=== PATIENT | female | born 1930 | race Caucasian/White ===

== ENCOUNTER 2016-04-08 15:29 | Inpatient (IN) | payer OTHER, MEDICAID ==
[~2016-04-08] VITALS: Ht 157.5 cm; Wt 44.0 kg
[2016-04-08 15:30] VITALS: BP 164/75; PULSE 60; RESP 16; TEMP 97.5; O2SAT 99
[2016-04-08] MEDS ORDERED: ASPIRIN 81 MG TAB.CHEW PO ONE (15:45)
[2016-04-08 17:27] LABS: BASOPHILS # (AUTO) 0.1 K/uL (0.0-0.2); BASOPHILS % (AUTO) 0.7 % (0.0-2.0); EOSINOPHILS # (AUTO) 0.2 K/uL (0.0-0.4); EOSINOPHILS % (AUTO) 2.2 % (0.0-4.0); HEMATOCRIT 31.3 % (36-48); HEMOGLOBIN 10.8 g/dL (12.0-16.0); LYMPHOCYTES # (AUTO) 1.7 K/uL (1.0-5.5); MEAN CORPUSCULAR HEMOGLOBIN 31 pg (27-31); MEAN CORPUSCULAR HGB CONC 35 % (32-36); MEAN CORPUSCULAR VOLUME 91 fL (79.0-98.0); MONOCYTES # (AUTO) 0.5 K/uL (0.0-1.0); MONOCYTES % (AUTO) 6.7 % (1.7-9.3); NEUTROPHILS # (AUTO) 5.2 K/uL (1.8-7.7); NEUTROPHILS % (AUTO) 68.4 % (40.0-70.0); PLATELET COUNT (AUTO) 159 K/uL (130-430); RED BLOOD CELL COUNT(AUTO) 3.45 MIL/uL (4.2-6.2); RED CELL DISTRIBUTION WIDTH 12.1 % (9.0-15.0); WHITE BLOOD COUNT (AUTO) 7.7 K/uL (4.8-10.8)
[2016-04-08 17:32] LABS: ANION GAP 8 (5-15); CALCIUM 9.2 mg/dL (8.4-11.0); CHLORIDE 105 mmol/L (98-107); CREATININE 1.15 mg/dL (0.55-1.30); GLUCOSE 130 mg/dL (70-99); POTASSIUM 4.9 mmol/L (3.5-5.1); SODIUM SERUM 138 mmol/L (136-145); UREA NITROGEN, BLOOD 39 mg/dL (8-21)
[2016-04-08 17:36] LABS: ALANINE AMINOTRANSFERASE 33 U/L (12-78); ALBUMIN 3.9 g/dL (3.4-4.8); ASPARTATE AMINOTRANSFERASE 31 U/L (10-37); LIPASE 234 U/L (73-393); TOTAL BILIRUBIN 0.3 mg/dL (0.0-1.0); TOTAL PROTEIN, SERUM 7.9 g/dL (6.4-8.3)
[2016-04-08 17:52] LABS: INR 0.9 (0.8-1.2); PROTHROMBIN TIME 10.2 SECS (9.5-12.5)
[2016-04-08 19:58] LABS: BILIRUBIN,URINE NEGATIVE (NEGATIVE); CLARITY/URINE HAZY (CLEAR); COLOR,URINE YELLOW (YELLOW); GLUCOSE,URINE TRACE (NEGATIVE); KETONES,URINE NEGATIVE (NEGATIVE); LEUKOCYTE ESTERASE ,URINE TRACE (NEGATIVE); NITRITE, URINE NEGATIVE (NEGATIVE); PROTEIN URINE TRACE (NEGATIVE); UROBILINOGEN,URINE 0.2 (0.2-1.0)
[2016-04-08] MEDS ORDERED: ASPIRIN 325 MG TABLET (ECOTRIN) PO ONE (20:00)
[2016-04-08 20:05] LABS: BLOOD, URINE TRACE (NEGATIVE)
[2016-04-08 20:07] VITALS: BP 180/78; PULSE 64; RESP 20; TEMP 98.4; O2SAT 100
[2016-04-08 20:12] LABS: BACTERIA,URINE FEW /HPF (None Seen); MUCUS,URINE None Seen /LPF (None Seen); RBC,URINE 0-3 /HPF (0-3)
[2016-04-08] MEDS ORDERED: PROP10DR2 EACH EYE (20:54)
[2016-04-08] MEDS ORDERED: BUSP5TAB3 PO (20:54)
[2016-04-08] MEDS ORDERED: DOCU-144 PO (20:54)
[2016-04-08] MEDS ORDERED: METF-303 PO (20:54)
[2016-04-08] MEDS ORDERED: FERR159T2 PO (20:54)
[2016-04-08] MEDS ORDERED: AMIO100T4 PO (20:54)
[2016-04-08] MEDS ORDERED: PREDEYE1% OP (20:54)
[2016-04-08] MEDS ORDERED: BENA20TA2 PO (20:54)
[2016-04-08] MEDS ORDERED: IBUP-1517 PO (20:54)
[2016-04-09] VITALS: BP 132/60; PULSE 55; RESP 18; TEMP 97.1; O2SAT 100
[2016-04-09 04:44] VITALS: BP 129/62; PULSE 57; RESP 17; TEMP 97.7; O2SAT 98
[2016-04-09 08:00] VITALS: BP 144/68; PULSE 50; RESP 18; TEMP 98; O2SAT 100
[2016-04-09] MEDS: ASPIRIN 325 MG TABLET (ECOTRIN) PO SCH (09:16)
[2016-04-09 11:27] VITALS: BP 112/58; PULSE 50; RESP 18; TEMP 97.6; O2SAT 98
[2016-04-09 12:24] VITALS: BP 135/73; PULSE 107; RESP 18; TEMP 98.1; O2SAT 96
[2016-04-09 19:30] VITALS: BP 117/51; PULSE 53; RESP 18; TEMP 97.8; O2SAT 98
[2016-04-09] MEDS ORDERED: DEXTROSE 50% JECT 50 ML DISP.SYRIN IVP PRN (21:15)
[2016-04-10 00:57] VITALS: BP 145/72; PULSE 58; RESP 18; TEMP 96.6; O2SAT 99
[2016-04-10 04:06] VITALS: BP 126/59; PULSE 61; RESP 18; TEMP 97; O2SAT 93
[2016-04-10] MEDS: INSULIN REGULAR, HUMAN 100 UNITS/ML, 10 ML VIAL (novoLIN R) SUBCUT PRN ×3 (05:25→23:57)
[2016-04-10 07:47] VITALS: BP 150/69; PULSE 60; RESP 18; TEMP 98.2; O2SAT 95
[2016-04-10 08:33] LABS: ANION GAP 6 (5-15); CALCIUM 9.1 mg/dL (8.4-11.0); CHLORIDE 102 mmol/L (98-107); CREATININE 1.25 mg/dL (0.55-1.30); GLUCOSE 54 mg/dL (70-99); POTASSIUM 3.8 mmol/L (3.5-5.1); SODIUM SERUM 139 mmol/L (136-145); UREA NITROGEN, BLOOD 33 mg/dL (8-21)
[2016-04-10 08:42] LABS: ALANINE AMINOTRANSFERASE 33 U/L (12-78); ASPARTATE AMINOTRANSFERASE 32 U/L (10-37); TOTAL BILIRUBIN 0.3 mg/dL (0.0-1.0); TOTAL PROTEIN, SERUM 8.2 g/dL (6.4-8.3)
[2016-04-10] MEDS: DOCUSATE SODIUM 100 MG CAPSULE PO SCH (08:45)
[2016-04-10] MEDS: metFORMIN HCL 500 MG TABLET PO SCH ×2 (08:45→20:47)
[2016-04-10] MEDS: ASPIRIN 325 MG TABLET (ECOTRIN) PO SCH (08:45)
[2016-04-10] MEDS: busPIRone HCL 5 MG TABLET PO SCH (08:45)
[2016-04-10] MEDS: AMIODARONE HCL 200 MG TABLET PO SCH (08:46)
[2016-04-10 09:16] LABS: CHOLESTEROL 169 mg/dL (<200); HDL CHOLESTEROL 61 mg/dL (>55); LDL CHOLESTEROL 94 mg/dL (<100); THYROID STIMULATING HORMONE 3.98 uIu/mL (0.34-4.82); TRIGLYCERIDES 78 mg/dL (30-150)
[2016-04-10 11:29] VITALS: BP 142/71; PULSE 77; RESP 16; TEMP 97.7; O2SAT 98
[2016-04-10 12:06] VITALS: Ht 157.5 cm; Wt 44.0 kg
[2016-04-10 15:40] VITALS: BP 135/63; PULSE 67; RESP 19; TEMP 98.4; O2SAT 93
[2016-04-10 19:30] VITALS: BP 133/57; PULSE 67; RESP 18; TEMP 97; O2SAT 100
[2016-04-10] MEDS ORDERED: BENAZEPRIL HCL 20 MG TABLET (LOTENSIN) PO SCH (21:00)
[2016-04-10] MEDS ORDERED: TEMAZEPAM 15 MG CAPSULE PO SCH (21:00)
[2016-04-11 00:14] VITALS: BP 96/47; PULSE 56; RESP 16; TEMP 97.6; O2SAT 92
[2016-04-11 04:25] VITALS: BP 106/50; PULSE 58; RESP 16; TEMP 98.6; O2SAT 99
[2016-04-11 08:18] VITALS: BP 132/55; PULSE 55; RESP 17; TEMP 96.2; O2SAT 99
[2016-04-11] MEDS: busPIRone HCL 5 MG TABLET PO SCH (08:20)
[2016-04-11] MEDS: ASPIRIN 325 MG TABLET (ECOTRIN) PO SCH (08:20)
[2016-04-11] MEDS: metFORMIN HCL 500 MG TABLET PO SCH (08:20)
[2016-04-11] MEDS: DOCUSATE SODIUM 100 MG CAPSULE PO SCH (08:20)
[2016-04-11] MEDS: AMIODARONE HCL 200 MG TABLET PO SCH (09:00)
[2016-04-11 12:00] VITALS: BP 90/45; PULSE 59; RESP 18; TEMP 97; O2SAT 100
[2016-04-11 14:25] VITALS: BP 90/45; PULSE 59; RESP 18; TEMP 97; O2SAT 100
== END 2016-04-11 16:00 | DRG 392 ==
LOC: SED 15:29 → STU 18:47
PROVIDERS: ADMIT Internal Medicine Hospice and Palliative Medicine; ATTEND Internal Medicine Hospice and Palliative Medicine
DX: K21.9 Gastro-esophageal reflux disease without esophagitis (principal); I47.1 Supraventricular tachycardia; E11.9 Type 2 diabetes mellitus without complications; I10 Essential (primary) hypertension; I48.0 Paroxysmal atrial fibrillation; F03.90 Unspecified dementia, unspecified severity, without behavioral disturbance, psychotic disturbance, mood disturbance, and anxiety; M19.90 Unspecified osteoarthritis, unspecified site; Z85.038 Personal history of other malignant neoplasm of large intestine; Z90.49 Acquired absence of other specified parts of digestive tract; Z88.0 Allergy status to penicillin; Z88.2 Allergy status to sulfonamides; Z79.01 Long term (current) use of anticoagulants; Z79.899 Other long term (current) drug therapy
CPT/HCPCS: 36415; 71010; 80053; 80061; 81000-TC; 82962; 83690-TC; 83880; 84443-TC; 84484; 85025; 85610-TC; 85730-TC; 87086; 93005; 93306; 97116-GP; 99285

== ENCOUNTER 2017-10-15 10:49 | Emergency (ER) | payer OTHER, MEDICAID ==
[~2017-10-15] VITALS: Ht 157.5 cm; Wt 45.4 kg
[~2017-10-15 10:49] MED LIST: AMIO100T4 PO; BENA20TA2 PO; BUSP5TAB3 PO; DOCU-144 PO; FERR159T2 PO; IBUP-1518 PO; METF500T6 PO; PREDEYE1% OP; PROP10DR2 EACH EYE
[2017-10-15 10:50] VITALS: BP_SYST 137
[2017-10-15] MEDS ORDERED: NACL 0.9% 1,000 ML IV ONE (11:00)
[2017-10-15 11:33] LABS: BASOPHILS # (AUTO) 0.1 K/uL (0.0-0.2); BASOPHILS % (AUTO) 0.8 % (0.0-2.0); EOSINOPHILS # (AUTO) 0.1 K/uL (0.0-0.4); EOSINOPHILS % (AUTO) 0.8 % (0.0-4.0); HEMATOCRIT 30.8 % (36-48); LYMPHOCYTES # (AUTO) 1.1 K/uL (1.0-5.5); LYMPHOCYTES % (AUTO) 16.2 % (20.5-51.5); MEAN CORPUSCULAR HEMOGLOBIN 31 pg (27-31); MEAN CORPUSCULAR HGB CONC 33 % (32-36); MEAN CORPUSCULAR VOLUME 94 fL (79.0-98.0); MONOCYTES # (AUTO) 0.5 K/uL (0.0-1.0); MONOCYTES % (AUTO) 7.3 % (1.7-9.3); NEUTROPHILS # (AUTO) 4.9 K/uL (1.8-7.7); NEUTROPHILS % (AUTO) 74.9 % (40.0-70.0); PLATELET COUNT (AUTO) 198 K/uL (130-430); RED BLOOD CELL COUNT(AUTO) 3.29 MIL/uL (4.2-6.2); RED CELL DISTRIBUTION WIDTH 11.9 % (9.0-15.0); WHITE BLOOD COUNT (AUTO) 6.7 K/uL (4.8-10.8)
[2017-10-15 11:45] LABS: ANION GAP 10 (5-15); CALCIUM 9.1 mg/dL (8.4-11.0); CHLORIDE 103 mmol/L (98-107); GLUCOSE 126 mg/dL (70-99); POTASSIUM 4.7 mmol/L (3.5-5.1); SODIUM SERUM 138 mmol/L (136-145); UREA NITROGEN, BLOOD 41 mg/dL (8-21)
[2017-10-15 11:49] LABS: ALANINE AMINOTRANSFERASE 21 U/L (12-78); ALBUMIN 3.9 g/dL (3.4-4.8); ASPARTATE AMINOTRANSFERASE 27 U/L (10-37); TOTAL BILIRUBIN 0.4 mg/dL (0.0-1.0)
[2017-10-15 12:46] LABS: BILIRUBIN,URINE NEGATIVE (NEGATIVE); BLOOD, URINE NEGATIVE (NEGATIVE); CLARITY/URINE CLEAR (CLEAR); COLOR,URINE YELLOW (YELLOW); GLUCOSE,URINE NEGATIVE (NEGATIVE); KETONES,URINE NEGATIVE (NEGATIVE); LEUKOCYTE ESTERASE ,URINE 1+ (NEGATIVE); NITRITE, URINE NEGATIVE (NEGATIVE); PROTEIN URINE NEGATIVE (NEGATIVE); UROBILINOGEN,URINE 0.2 (0.2-1.0)
[2017-10-15 13:13] LABS: BACTERIA,URINE FEW /HPF (None Seen); MUCUS,URINE None Seen /LPF (None Seen); RBC,URINE 0-3 /HPF (0-3); WBC,URINE 0-3 /HPF (0-3)
[2017-10-15] MEDS ORDERED: NITROFURANTOIN MONOHYD/M-CRYST 100 MG CAPSULE PO ONE (13:15)
[2017-10-15 16:53] VITALS: BP_SYST 142
== END 2017-10-15 16:20 | disposition home or self-care (01) ==
LOC: SED 10:49
DX: R51 Headache (principal); D64.9 Anemia, unspecified; N39.0 Urinary tract infection, site not specified; E11.9 Type 2 diabetes mellitus without complications; I10 Essential (primary) hypertension; Z88.1 Allergy status to other antibiotic agents; Z88.0 Allergy status to penicillin; Z88.2 Allergy status to sulfonamides; Z91.018 Allergy to other foods; Z79.899 Other long term (current) drug therapy; W01.0XXA Fall on same level from slipping, tripping and stumbling without subsequent striking against object, initial encounter; Y93.89 Activity, other specified; Y92.89 Other specified places as the place of occurrence of the external cause; Y99.8 Other external cause status
CPT/HCPCS: 36415; 70450; 71045; 73521; 73590; 80053; 81000; 83605; 85025; 87040; 96360; 99285; J7030

== ENCOUNTER 2019-01-11 21:04 | Emergency (ER) | payer OTHER, MEDICAID ==
[~2019-01-11] VITALS: Ht 157.5 cm; Wt 45.4 kg
[~2019-01-11 21:04] MED LIST changes: -BENA20TA2 PO; +BENA20TA9 PO; +METF-379 PO; -METF500T6 PO
[2019-01-11 21:30] VITALS: BP_SYST 137
--- NOTE | 2019-01-11 22:00 | NUR ---
Patient to ER bed 8 to gown for evaluation. Side rails up. Report taken from EMS/Transport Crew
--- NOTE | 2019-01-11 22:00 | NUR ---
Pt brought in by transport/ambulance crew. Pt awake, lethargic, disoriented and confused/incoherent when answering questions. Nurse Mikki at [facility] was called for details on visit. Nurse states that patient had unwitnessed fall while at their facility, and was set to be transferred to [facility] for uncontrolled outburts and erratic behavior associated with dementia and Major Depressive disorder. Pt Sent to [facility] for medical clearance. Pt has no acute signs of distress upon presenting to ed. respiratory rate and effort normal. Vital signs stable.
--- NOTE | 2019-01-11 22:05 | NUR ---
ER at bedside examining patient.
--- NOTE | 2019-01-11 22:32 | NUR ---
Patient transported to radiology via [facility], accompanied by Warern Long.
--- NOTE | 2019-01-11 22:42 | NUR ---
Returned from radiology, back to [facility].
--- NOTE | 2019-01-11 23:00 | NUR ---
# 14 FR In and Out catheter with use of sterile technique. Immediate return of 100 ml dark yellow urine noted. Urine sample collected and sent to lab. Pt tolerated procedure well. Patient unable to toilet self.
[2019-01-11 23:19] LABS: BASOPHILS # (AUTO) 0.1 K/uL (0.0-0.2); BASOPHILS % (AUTO) 0.7 % (0.0-2.0); EOSINOPHILS # (AUTO) 0.3 K/uL (0.0-0.4); EOSINOPHILS % (AUTO) 3.9 % (0.0-4.0); HEMATOCRIT 27.2 % (36-48); HEMOGLOBIN 9.3 g/dL (12.0-16.0); LYMPHOCYTES # (AUTO) 3.4 K/uL (1.0-5.5); MEAN CORPUSCULAR HEMOGLOBIN 31 pg (27-31); MEAN CORPUSCULAR HGB CONC 34 % (32-36); MEAN CORPUSCULAR VOLUME 92 fL (79.0-98.0); MONOCYTES # (AUTO) 0.6 K/uL (0.0-1.0); MONOCYTES % (AUTO) 8.1 % (1.7-9.3); NEUTROPHILS # (AUTO) 3.5 K/uL (1.8-7.7); NEUTROPHILS % (AUTO) 44.3 % (40.0-70.0); PLATELET COUNT (AUTO) 193 K/uL (130-430); RED BLOOD CELL COUNT(AUTO) 2.95 MIL/uL (4.2-6.2); RED CELL DISTRIBUTION WIDTH 13.1 % (9.0-15.0); WHITE BLOOD COUNT (AUTO) 7.9 K/uL (4.8-10.8)
--- NOTE | 2019-01-11 23:20 | NUR ---
Pt resting in ED bed comfortably. No acute distress noted. Vital Signs stable.
[2019-01-11 23:35] LABS: PROTHROMBIN TIME 9.9 SECS (9.5-12.5)
[2019-01-11 23:36] LABS: ALANINE AMINOTRANSFERASE 21 U/L (12-78); ALBUMIN 3.3 g/dL (3.4-4.8); ALCOHOL, BLOOD 3 mg/dL (<10); ANION GAP 4 (5-15); ASPARTATE AMINOTRANSFERASE 21 U/L (10-37); CALCIUM 8.2 mg/dL (8.4-11.0); CHLORIDE 103 mmol/L (98-107); CREATININE 1.38 mg/dL (0.55-1.30); POTASSIUM 3.9 mmol/L (3.5-5.1); SODIUM SERUM 136 mmol/L (136-145); TOTAL BILIRUBIN 0.3 mg/dL (0.0-1.0); UREA NITROGEN, BLOOD 33 mg/dL (8-21)
[2019-01-11 23:41] LABS: GLUCOSE 46 mg/dL (70-99)
[2019-01-11] MEDS ORDERED: DEXTROSE 50% JECT 50 ML DISP.SYRIN IVP ONE (23:45)
[2019-01-11] MEDS ORDERED: DEXTROSE 50% JECT 50 ML DISP.SYRIN ONE (23:57)
[2019-01-12 00:10] LABS: BILIRUBIN,URINE NEGATIVE (NEGATIVE); BLOOD, URINE NEGATIVE (NEGATIVE); CLARITY/URINE CLEAR (CLEAR); COLOR,URINE YELLOW (YELLOW); GLUCOSE,URINE 1+ (NEGATIVE); KETONES,URINE NEGATIVE (NEGATIVE); LEUKOCYTE ESTERASE ,URINE NEGATIVE (NEGATIVE); NITRITE, URINE NEGATIVE (NEGATIVE); PH,URINE 6.5 (5.0-8.0); PROTEIN URINE NEGATIVE (NEGATIVE); UROBILINOGEN,URINE 0.2 (0.2-1.0)
[2019-01-12 00:18] LABS: BENZODIAZEPINE, URINE POSITIVE (NEG <=150); OPIATE, URINE POSITIVE (NEG <=100); UR TRICYCLIC ANTIDEPRESSANTS POSITIVE (NEG <=300)
[2019-01-12 00:19] LABS: BARBITURATE, URINE NEGATIVE (NEG <=200); CANNABINOID, URINE NEGATIVE (NEG <=50); COCAINE, URINE NEGATIVE (NEG <=150); METHAMPHETAMINES SCREEN,URINE NEGATIVE (NEG <=500); PHENCYCLIDINE SCREEN,URINE NEGATIVE (NEG <=25); URINE AMPHETAMINE NEGATIVE (NEG <=500); URINE METHADONE NEGATIVE (NEG <=200); URINE OXYCODONE SCREEN NEGATIVE (NEG <=100); URINE PROPOXYPHENE SCREEN NEGATIVE (NEG <=300)
--- NOTE | 2019-01-12 01:31 | NUR ---
Patient to be discharged to [facility] after medical clearance. Is being transferred due to higher level of care. Receiving facility has accepting physician and available space. ER physician has signed transfer form. Patient or responsible green party has agreed to transfer and signed form. Patient belongings inventoried and will be sent with patient. Copy of nursing notes, lab reports, EKG, Physicians Orders and X-rays to be sent with patient. Report called to Charge nurse at receiving facility. Receiving physician is . [facility] ambulance service on scene.
[2019-01-12 01:33] VITALS: BP_SYST 141
== END 2019-01-12 01:33 | disposition short-term general hospital (02) ==
LOC: SED 21:04
DX: E11.649 Type 2 diabetes mellitus with hypoglycemia without coma (principal); D64.9 Anemia, unspecified; N28.9 Disorder of kidney and ureter, unspecified; K21.9 Gastro-esophageal reflux disease without esophagitis; I10 Essential (primary) hypertension; I67.82 Cerebral ischemia; Z88.0 Allergy status to penicillin; Z88.1 Allergy status to other antibiotic agents; Z88.2 Allergy status to sulfonamides; Z79.82 Long term (current) use of aspirin; Z79.899 Other long term (current) drug therapy; W18.39XA Other fall on same level, initial encounter; Y93.89 Activity, other specified; Y92.89 Other specified places as the place of occurrence of the external cause; Y99.8 Other external cause status
CPT/HCPCS: 36415; 70450; 71045; 80053; 80307; 81003; 82962; 84484; 85025; 85610; 85730; 93005; 96374; 99285; G0482

== ENCOUNTER 2019-01-12 13:36 | Outpatient (CLI) | payer OTHER ==
[2019-01-12 15:07] LABS: CHOLESTEROL 168 mg/dL (<200); HDL CHOLESTEROL 52 mg/dL (>55); LDL CHOLESTEROL 92 mg/dL (<100); TRIGLYCERIDES 114 mg/dL (30-150)
== END 2019-01-12 20:00 | disposition home or self-care (01) ==
LOC: SLB 13:36
PROVIDERS: ATTEND Psychiatry & Neurology Psychiatry
DX: Z00.00 Encounter for general adult medical examination without abnormal findings (principal)
CPT/HCPCS: 36415; 80061; 83036